=== PATIENT | male | born 1980 | race Caucasian/White ===

== ENCOUNTER 2017-11-16 20:54 | Emergency (ER) | payer SELFPAY ==
[~2017-11-16] VITALS: Ht 177.8 cm; Wt 70.8 kg
--- NOTE | 2017-11-16 20:59 | ED.ADGEN ---
Past History Past Medical History: Depression, Other Adult General Chief Complaint Chief Complaint "" .. I thinking about killing myself again.. I tried before .. maybe 4 to 5 times..I tried to hang myself once.. and the rest I just try to over dose on drugs.. I have done about gram meth today IV... and some Heroin...." HPI HPI Patient is a 37 year old male who presents with above hx and complaints of suicidal ideation. Patient has a long history of depression. Previous episodes of suicide attempt. Patient states he's doing excessive gram of meth a day plus heroin. No recent travel or specific ill contacts. Patient does have multiple IV sticks fernandes on his arms that appeared to be recent. Pt. has no specific plan other than OD with Meth or Heroin. Pt. states he has been off drugs for almost a year before he started using again.. Review of Systems Review of Systems Constitutional: Denies fever or chills [] Eyes: Denies change in visual acuity, redness, or eye pain [] HENT: Denies nasal congestion or sore throat [] Respiratory: Denies cough or shortness of breath [] Cardiovascular: No additional information not addressed in HPI [] GI: Denies abdominal pain, nausea, vomiting, bloody stools or diarrhea [] : Denies dysuria or hematuria [] Musculoskeletal: Denies back pain or joint pain [] Integument: Denies rash or skin lesions [] Neurologic: Denies headache, focal weakness or sensory changes [] Endocrine: Denies polyuria or polydipsia [] All other systems were reviewed and found to be within normal limits, except as documented in this note. Family History Family History Noncontributory Current Medications Current Medications Current Medications Medications (Trade) Dose Ordered Sig/Annie Start Time Stop Time Status Last Admin Dose Admin Acetaminophen (Tylenol) 500 mg STK-MED ONCE 11/17/17 03:09 11/17/17 03:10 DC Folic Acid (FOLIC ACID SYRINGE for ER) 5 mg STK-MED ONCE 11/16/17 21:31 11/16/17 21:32 DC Lactated Ringer's 1,000 ml @ 1,000 mls/hr 1X ONCE 11/17/17 03:30 11/17/17 04:29 11/17/17 03:28 1,000 MLS/HR Lorazepam (Ativan) 2 mg 1X ONCE 11/17/17 04:15 11/17/17 04:18 DC 11/17/17 04:18 2 MG Multivitamins/ Minerals (Infuvite Adult) 10 ml STK-MED ONCE 11/16/17 21:31 11/16/17 21:32 DC Multivitamins/ Minerals 10 ml/ Folic Acid 1 mg/ Thiamine HCl 100 mg/Dextrose/ Lactated Ringer's 1,011.2 ml @ 1,000 mls/ hr 1X ONCE 11/16/17 22:00 11/16/17 23:00 DC 11/16/17 21:46 1,000 MLS/HR Potassium Chloride (KCl Oral Soln) 40 meq 1X ONCE 11/17/17 01:30 11/17/17 01:31 DC 11/17/17 01:25 40 MEQ Quetiapine Fumarate (SEROquel) 50 mg 1X ONCE 11/17/17 03:00 11/17/17 03:02 DC 11/17/17 03:27 50 MG Sodium Bicarbonate (Sodium Bicarb Adult 8.4% Syr) 50 meq 1X ONCE 11/16/17 23:30 11/16/17 23:31 DC 11/16/17 23:10 50 MEQ Tetanus/ Diphtheria Toxoids Adsorbed (Tenivac Vial) 0.5 ml ONCE ONCE 11/16/17 22:00 11/16/17 22:01 DC 11/16/17 21:45 0.5 ML Thiamine HCl 200 mg STK-MED ONCE 11/16/17 21:31 11/16/17 21:32 DC See nursing for home meds Allergies Allergies Allergies Coded Allergies Type Severity Reaction Last Updated Verified No Known Drug Allergies 11/16/17 No No known drug allergies Physical Exam Physical Exam Constitutional: Moderately acute emotional distress, non-toxic appearance. [] HENT: Normocephalic, atraumatic, bilateral external ears normal, oropharynx dry , no oral exudates, nose normal. [] Eyes: PERRLA, EOMI, conjunctiva normal, no discharge. [] Neck: Normal range of motion, no tenderness, supple, no stridor. [] Cardiovascular:Heart rate regular rhythm, no murmur [] Lungs & Thorax: Bilateral breath sounds equal at apexes with scattered wheeze on auscultation [] Abdomen: Bowel sounds decreased, soft, no tenderness, no masses, no pulsatile masses. [] Skin: Warm, dry, no erythema, no rash. [] Multiple injection sites. Scratches. Back: No tenderness, no CVA tenderness. [] Extremities: No tenderness, no cyanosis, no clubbing, ROM intact, no edema. [] Neurologic: Alert and oriented X 3, normal motor function, normal sensory function, no focal deficits noted. []DTR+ 2. Brachial and patellar. Psychologic: Affect varies between flat to anxious and agitated, judgement poor insight, mood depressed. Reports suicidal ideation. Pressured speech, crying, then later low voice and depressed. Emotions seem to cycle from depressed to agitated. Current Patient Data Vital Signs Vital Signs Date Time Temp Pulse Resp B/P (MAP) Pulse Ox O2 Delivery O2 Flow Rate FiO2 11/17/17 03:55 80 20 138/80 (99) 98 Room Air 11/16/17 21:00 98.1 Lab Results Laboratory Tests Test 11/16/17 21:11 11/17/17 00:00 11/17/17 03:06 White Blood Count 6.5 x10^3/uL (4.0-11.0) Red Blood Count 4.67 x10^6/uL (4.30-5.70) Hemoglobin 14.5 g/dL (13.0-17.5) Hematocrit 41.6 % (39.0-53.0) Mean Corpuscular Volume 89 fL (79-100) Mean Corpuscular Hemoglobin 31 pg (25-35) Mean Corpuscular Hemoglobin Concent 35 g/dL (31-37) Red Cell Distribution Width 13.7 % (11.5-14.5) Platelet Count 285 x10^3/uL (140-400) Neutrophils (%) (Auto) 54 % (31-73) Lymphocytes (%) (Auto) 34 % (24-48) Monocytes (%) (Auto) 9 % (0-9) Eosinophils (%) (Auto) 2 % (0-3) Basophils (%) (Auto) 1 % (0-3) Neutrophils # (Auto) 3.5 x10^3uL (1.8-7.7) Lymphocytes # (Auto) 2.2 x10^3/uL (1.0-4.8) Monocytes # (Auto) 0.6 x10^3/uL (0.0-1.1) Eosinophils # (Auto) 0.1 x10^3/uL (0.0-0.7) Basophils # (Auto) 0.0 x10^3/uL (0.0-0.2) Prothrombin Time 10.1 SEC (9.4-11.4) Prothrombin Time INR 1.0 (0.9-1.1) PTT 29 SEC (23-33) Sodium Level 139 mmol/L (136-145) Potassium Level 3.3 mmol/L (3.5-5.1) L Chloride Level 102 mmol/L (98-107) Carbon Dioxide Level 28 mmol/L (21-32) Anion Gap 9 (6-14) Blood Urea Nitrogen 26 mg/dL (8-26) Creatinine 1.1 mg/dL (0.7-1.3) Estimated GFR (Cockcroft-Gault) 75.3 Glucose Level 92 mg/dL (70-99) Calcium Level 8.4 mg/dL (8.5-10.1) L Magnesium Level 1.8 mg/dL (1.8-2.4) Total Bilirubin 1.0 mg/dL (0.2-1.0) Direct Bilirubin 0.3 mg/dL (0.0-0.2) H Aspartate Amino Transferase (AST) 93 U/L (15-37) H Alanine Aminotransferase (ALT) 109 U/L (16-63) H Alkaline Phosphatase 89 U/L (46-116) Creatine Kinase 1108 U/L (39-308) H 716 U/L (39-308) H Creatine Kinase MB (Mass) 16.1 ng/mL (0.0-3.6) H Creatine Kinase MB Relative Index 1.5 % (0-4) Troponin I Quantitative < 0.017 ng/mL (0-0.055) HY-Cfr-J-Type Natriuretic Peptide 167 pg/mL (0-124) H Total Protein 6.9 g/dL (6.4-8.2) Albumin 3.7 g/dL (3.4-5.0) Salicylates Level 1.9 mg/dL (2.8-20.0) L Salicylate Last Dose Date Unk Salicylate Last Dose Time Unk Acetaminophen Level 3.9 mcg/mL (10-30) L Acetaminophen Last Dose Date Unk Acetaminophen Last Dose Time Unk Ethyl Alcohol Level < 10 mg/dL (0-10) Urine Collection Type Unknown Urine Color Yellow Urine Clarity Clear Urine pH 5.5 Urine Specific Philip 1.025 Urine Protein Neg (NEG-TRACE) Urine Glucose (UA) 500 mg/dL (NEG) Urine Ketones (Stick) Neg mg/dL (NEG) Urine Blood Neg (NEG) Urine Nitrite Neg (NEG) Urine Bilirubin Neg (NEG) Urine Urobilinogen Dipstick 1 mg/dL (0.2 mg/dL) Urine Leukocyte Esterase Neg (NEG) Urine RBC Occ /HPF (0-2) Urine WBC Occ /HPF (0-4) Urine Squamous Epithelial Cells Few /LPF Urine Bacteria Few /HPF (0-FEW) Urine Hyaline Casts Occ /HPF Urine Mucus Slight /LPF Urine Opiates Screen Pos (NEG) Urine Methadone Screen Neg (NEG) Urine Barbiturates Neg (NEG) Urine Phencyclidine Screen Neg (NEG) Urine Amphetamine/Methamphetamine Pos (NEG) Urine Benzodiazepines Screen Neg (NEG) Urine Cocaine Screen Neg (NEG) Urine Cannabinoids Screen Neg (NEG) Urine Ethyl Alcohol Neg (NEG) EKG EKG I interpretation of EKG shows a sinus rhythm at 88 bpm. There is an incomplete right bundle branch block. No findings acute STEMI of contralateral changes.[] Radiology/Procedures Radiology/Procedures Dictation of chest x-ray shows no acute cardiopulmonary findings.[] Course & Med Decision Making Course & Med Decision Making Pertinent Labs and Imaging studies reviewed. (See chart for details). See Psych. eval. by Dr. Kaia Faulkner MD- recommends involuntary commitment. Psych. placement started at 200 hrs. Pt. to start on Seroquel 50 mg po now and increase to 100mg day to the n 100 mg daily, increase 200mg day 3, with target dosage 300 by Day 4. Pt. recommended hospitalization. Pt. accepted at [facility]- Dr. Diaz. Per Transfer [facility] [] Final Impression Final Impression 1. Suicidal ideation 2. Depression[] 3. Polysubstance Abuse and Tobacco Use 4. Hypokalemia 3.3 5. Dehydration 6. Elevation CK 1108, repeat= 716 7. Hx. Bipolar 8. Hx. Anxiety Disorder 9. Mild elevation AST/ALT 93/109 Dragon Disclaimer Dragon Disclaimer This electronic medical record was generated, in whole or in part, using a voice recognition dictation system. DARY DICKEY MD November 16, 2017 20:59
[2017-11-16] MEDS ORDERED: THIAMINE 200 MG/2 ML VIAL. IV ONE (21:31)
[2017-11-16] MEDS ORDERED: FOLIC ACID 5 MG/ML SYRINGE for ER IV ONE (21:31)
[2017-11-16] MEDS ORDERED: MVI, ADULT NO.4 WITH VIT K 10 ML VIAL IV ONE (21:31)
[2017-11-16 21:33] LABS: BASO % 1 % (0-3); EOS # 0.1 x10^3/uL (0.0-0.7); EOS % 2 % (0-3); HEMATOCRIT 41.6 % (39.0-53.0); HEMOGLOBIN 14.5 g/dL (13.0-17.5); LYMPH # 2.2 x10^3/uL (1.0-4.8); LYMPH % 34 % (24-48); MEAN CORPUSCULAR HEMOGLOBIN 31 pg (25-35); MEAN CORPUSCULAR HGB CONC 35 g/dL (31-37); MEAN CORPUSCULAR VOLUME 89 fL (79-100); MONO # 0.6 x10^3/uL (0.0-1.1); MONO % 9 % (0-9); NEUT # 3.5 x10^3uL (1.8-7.7); NEUT % 54 % (31-73); PLATELET COUNT 285 x10^3/uL (140-400); RED BLOOD COUNT 4.67 x10^6/uL (4.30-5.70); RED CELL DISTRIBUTION WIDTH 13.7 % (11.5-14.5); WHITE BLOOD COUNT 6.5 x10^3/uL (4.0-11.0)
--- NOTE | 2017-11-16 21:48 | RAD ---
AP portable chest 11/16/2017. Reason for exam: Overdose. Comparison is made with a study done 02/13/2011. Infiltrates present previously have cleared. No new infiltrate or effusion is seen. Heart size is normal. IMPRESSION: No acute findings. Electronically signed by: Jr Fry Jr., MD (11/16/2017 9:45 PM) [id number]
[2017-11-16 21:50] LABS: ACETAMIN 3.9 mcg/mL (10-30); ETHANOL < 10 mg/dL (0-10); SALIC 1.9 mg/dL (2.8-20.0)
[2017-11-16 21:52] LABS: ALBUMIN 3.7 g/dL (3.4-5.0); CALCIUM 8.4 mg/dL (8.5-10.1); CREATININE 1.1 mg/dL (0.7-1.3); DIRECT BILIRUBIN 0.3 mg/dL (0.0-0.2); GFR 75.3; MAGNESIUM 1.8 mg/dL (1.8-2.4); POTASSIUM 3.3 mmol/L (3.5-5.1); TOTAL PROTEIN 6.9 g/dL (6.4-8.2)
[2017-11-16] MEDS ORDERED: MVI, ADULT NO.4 WITH VIT K 10 ML, FOLIC ACID 1 MG, THIAMINE 100 MG in IV DEXTROSE 5%-LA... IV ONE ×4 (22:00)
[2017-11-16] MEDS ORDERED: TETANUS AND DIPHTHERIA TOX/PF 0.5 ML VIAL. VAX IM ONE (22:00)
[2017-11-16] MEDS ORDERED: IV RINGERS SOLUTION,LACTATED 1,000 ML IV ONE (23:00)
[2017-11-16] MEDS ORDERED: SODIUM BICARB ADULT 8.4% 50 MEQ/50 ML DISP.SYRIN. IV ONE (23:30)
[2017-11-17 00:36] LABS: BARBITURATES NEG (NEG); BENZODIAZEPINES NEG (NEG); CANNABINOIDS NEG (NEG); COCAINE NEG (NEG); METHADONE NEG (NEG); OPIATES POS (NEG); PHENCYCLIDINE NEG (NEG)
[2017-11-17 00:45] LABS: AMPHETAMINE/METHAMPHETAMINE POS (NEG)
[2017-11-17 00:48] LABS: BILIRUBIN,URINE NEG (NEG); CLARITY,URINE CLEAR; COLOR,URINE YELLOW; GLUCOSE,URINE 500 mg/dL (NEG); NITRITE,URINE NEG (NEG); UROBILINOGEN,URINE 1 mg/dL (0.2 mg/dL)
[2017-11-17 00:49] LABS: BACTERIA,URINE FEW /HPF (0-FEW); HYALINE CASTS, URINE OCC /HPF; RBC,URINE OCC /HPF (0-2); SQUAMOUS EPITHELIAL CELL,UR FEW /LPF; WBC,URINE OCC /HPF (0-4)
[2017-11-17] MEDS ORDERED: IV RINGERS SOLUTION,LACTATED 1,000 ML IV ONE ×3 (01:30→03:30)
[2017-11-17] MEDS ORDERED: POTASSIUM CHLORIDE 20 MEQ/15 ML ORAL LIQUID. PO ONE (01:30)
[2017-11-17] MEDS ORDERED: QUEtiapine 50 MG TABLET. PO ONE (03:00)
[2017-11-17] MEDS ORDERED: ACETAMINOPHEN 500 MG TABLET PO ONE ×2 (03:09→03:30)
[2017-11-17] MEDS ORDERED: LORazepam 1 MG TABLET PO ONE (03:30)
[2017-11-17 03:55] VITALS: BP 138/80
[2017-11-17] MEDS ORDERED: LORazepam 2 MG/ML VIAL ONE (04:12)
[2017-11-17] MEDS ORDERED: LORazepam 2 MG/ML VIAL IV ONE (04:15)
--- NOTE | 2017-11-17 19:08 | EKG ---
[address] [address] Test Date: 2017-11-16 Test Time: 21:26:37 Pat Name: MARCELLA POLANCO Department: Room: Gender: M Riding Double: KYLE : 1980 Requested By: DARY DICKEY Order Number: [id number] Reading MD: Measurements Intervals [place] Rate: 88 P: 74 RI: 144 QRS: 43 QRSD: 112 T: 8 QT: 414 QTc: 505 Interpretive Statements SINUS RHYTHM INCOMPLETE RIGHT BUNDLE BRANCH BLOCK PROLONGED QT NO SPECIFIC ECG ABNORMALITIES RI6.01 No previous ECG available for comparison
[2017-11-18 16:12] LABS: HCV ANTIBODY >11.0 s/co ratio (0.0-0.9); HEP A IGM ABDY Negative (Negative)
== END 2017-11-17 04:30 ==
LOC: ER 20:54
DX: R45.851 Suicidal ideations (principal); F19.10 Other psychoactive substance abuse, uncomplicated; E87.6 Hypokalemia; E86.0 Dehydration; F31.9 Bipolar disorder, unspecified; F41.9 Anxiety disorder, unspecified; R74.8 Abnormal levels of other serum enzymes; R74.0 Nonspecific elevation of levels of transaminase and lactic acid dehydrogenase [LDH]
CPT/HCPCS: 36415; 71045; 80048; 80074; 80076; 80307; 81001; 82550; 82553; 83735; 83880; 84484; 85025; 85610; 85730; 90471; 90714; 93005; 96361; 96365; 96375; 99285; G0480; J2060; J7120; G0479